=== PATIENT | female | born 1995 | race Caucasian/White ===

== ENCOUNTER → 2016-10-03 | Outpatient (CLI) | payer BC ==
[~2016-10-03] VITALS: Ht 162.6 cm; Wt 97.1 kg
[~2016-10-03] MED LIST: BUTORPHANO10 MG/1 ML; CYMBALTA20 MG PO; DICYCLOMINE HCL20 MG PO; LAMICTAL25 MG PO; LEVAQUIN500 MG PO; PHENERGAN 12.12.5 M1 PO; ROCEPHIN IM/I2000 MG IM; SYNTHROID150 MCG PO; TOPAMAX100 MG PO; TYLENOL 325MG325 MG PO; VERAPAMIL ER180 M1 PO; ZOFRAN4 MG PO
== END ==
LOC: OPSV 10:22
DX: Z48.00 Encounter for change or removal of nonsurgical wound dressing (principal); G81.90 Hemiplegia, unspecified affecting unspecified side; G43.109 Migraine with aura, not intractable, without status migrainosus; Z88.8 Allergy status to other drugs, medicaments and biological substances
CPT/HCPCS: 96365; 96375; J1200; J1885; J2930; J7050

== ENCOUNTER → 2016-10-04 | Outpatient (CLI) | payer BC ==
[~2016-10-04] VITALS: Ht 162.6 cm; Wt 97.1 kg
== END ==
LOC: OPSV 07:47
DX: Z48.00 Encounter for change or removal of nonsurgical wound dressing (principal); G43.109 Migraine with aura, not intractable, without status migrainosus; Z88.8 Allergy status to other drugs, medicaments and biological substances
CPT/HCPCS: 96365; 96375; J1200; J1885; J2930

== ENCOUNTER → 2016-10-05 | Outpatient (CLI) | payer BC ==
[~2016-10-05] VITALS: Ht 162.6 cm; Wt 97.1 kg
== END ==
LOC: OPSV 07:34
DX: Z48.00 Encounter for change or removal of nonsurgical wound dressing (principal); G43.109 Migraine with aura, not intractable, without status migrainosus
CPT/HCPCS: 96365; 96375; J1200; J1885; J2930; J7050

== ENCOUNTER → 2016-10-06 | Outpatient (CLI) | payer BC ==
[~2016-10-06] VITALS: Ht 162.6 cm; Wt 97.1 kg
== END ==
LOC: OPSV 08:00
DX: Z48.00 Encounter for change or removal of nonsurgical wound dressing (principal); G43.109 Migraine with aura, not intractable, without status migrainosus
CPT/HCPCS: 96365; 96375; J1200; J1885; J2930; J7050

== ENCOUNTER → 2016-10-07 | Outpatient (CLI) | payer BC ==
[~2016-10-07] VITALS: Ht 162.6 cm; Wt 97.1 kg
== END ==
LOC: OPSV 08:00
DX: G43.909 Migraine, unspecified, not intractable, without status migrainosus (principal)
CPT/HCPCS: 96365; 96375; J1200; J1885; J2930; J7050

== ENCOUNTER → 2017-04-15 | Outpatient (CLI) | payer BC ==
[~2017-04-15] VITALS: Ht 162.6 cm; Wt 94.3 kg
[~2017-04-15] MED LIST changes: -ROCEPHIN IM/I2000 MG IM; -TYLENOL 325MG325 MG PO
== END ==
LOC: OPSV 15:48
DX: G43.419 Hemiplegic migraine, intractable, without status migrainosus (principal)
CPT/HCPCS: 96365; 96367; 96375; J1100; J1200; J1885; J2550; J7050

== ENCOUNTER → 2017-04-16 | Outpatient (CLI) | payer BC ==
[~2017-04-16] VITALS: Ht 162.6 cm; Wt 94.3 kg
== END ==
LOC: OPSV 12:52
DX: G43.419 Hemiplegic migraine, intractable, without status migrainosus (principal)
CPT/HCPCS: 96365; 96367; 96375; J1100; J1200; J1885; J2550; J7050

== ENCOUNTER 2020-09-17 16:36 | Inpatient (IN) | payer BC, OTHER ==
[~2020-09-17] VITALS: Ht 162.6 cm; Wt 78.9 kg
[~2020-09-17 16:36] MED LIST changes: +ATIVAN1 MG PO; +BENADRYL 25MG C25 MG PO; +BENADRYL IM; +BOTOX INJ 1100 UNITS SC; +DIAMOX 250 MG250 MG PO; +DIHYDROERGOTAMINE IM; +FEOSOL325 MG PO; +FERROUS SULFAT325 M2 PO; +KEFLEX500 MG PO; +MIRALAX17 GM PO; +NORCO 5-325 TA1 EACH PO; +PERCOCET 10-321 EACH PO; -PHENERGAN 12.12.5 M1 PO; +PHENERGAN 25 MG25 M1 PO; +PHENERGAN25 MG PR; +PRENATAL VITAM1 EAC5 PO; +PRENATAL VITAM1 EAC8 PO; +ROCEPHIN IM/I2000 MG IM; +SENOKOT-S TABL1 EACH PO; +SYNTHROID175 MCG PO; +TYLENOL 325MG325 MG PO; +VERAPAMIL ER180 MG PO; +[UNRECOGNIZED DRUG - OTHER] IM
[2020-09-17 17:22] LABS: RED BLOOD COUNT 3.85 M/UL (4.00-5.10); WHITE BLOOD COUNT 12.5 K/UL (4.5-11.0)
[2020-09-18] MEDS ORDERED: ZOLOFT50 MG PO (07:03)
[2020-09-18] MEDS ORDERED: SYNTHROID175 MCG PO (07:04)
[2020-09-18] MEDS ORDERED: PRENATAL VITAM1 EAC3 PO (07:04)
[2020-09-18] MEDS ORDERED: TUMS DUAL ACTI1 EACH PO (07:05)
[2020-09-18] MEDS ORDERED: DOCUSATE SODIU100 MG PO (10:45)
[2020-09-18] MEDS ORDERED: HYDROCODON-ACE1 EAC4 PO (10:45)
[2020-09-18] MEDS ORDERED: IBUPROFEN600 MG PO (10:45)
[2020-09-19 04:37] LABS: HEMOGLOBIN 10.2 gm/dl (12.3-15.3)
== END 2020-09-19 14:21 | disposition home or self-care (01) | DRG 807 ==
LOC: GENOP 16:36 → OB 09-18 00:04
PROVIDERS: Obstetrics & Gynecology; ADMIT Obstetrics & Gynecology
PROC: 0U7C7ZZ Dilation of Cervix, Via Natural or Artificial Opening (ICD-10-PCS; principal; 2020-09-18)
PROC: 10E0XZZ Delivery of Products of Conception, External Approach (ICD-10-PCS; 2020-09-18)
PROC: 10907ZC Drainage of Amniotic Fluid, Therapeutic from Products of Conception, Via Natural or Artificial Opening (ICD-10-PCS; 2020-09-18)
PROC: 4A1J7BZ Monitoring of Products of Conception, Nervous Pressure, Via Natural or Artificial Opening (ICD-10-PCS; 2020-09-18)
PROC: 10H073Z Insertion of Monitoring Electrode into Products of Conception, Via Natural or Artificial Opening (ICD-10-PCS; 2020-09-18)
DX: O99.284 Endocrine, nutritional and metabolic diseases complicating childbirth (principal); Z37.0 Single live birth; G43.909 Migraine, unspecified, not intractable, without status migrainosus; E03.9 Hypothyroidism, unspecified; Z3A.39 39 weeks gestation of pregnancy; Z20.822 Contact with and (suspected) exposure to COVID-19
CPT/HCPCS: 36415; 51702; 81001; 82800; 85014; 85018; 85025; 85461; 86900; 86901; 90715; J0595; J1642; J2590; J7030; J7120

== ENCOUNTER → 2021-03-18 | Outpatient (CLI) | payer BC, OTHER ==
[~2021-03-18] VITALS: Ht 162.6 cm; Wt 90.7 kg
[~2021-03-18] MED LIST changes: +DOCUSATE SODIU100 MG PO; +HYDROCODON-ACE1 EAC4 PO; +IBUPROFEN600 MG PO; +PRENATAL VITAM1 EAC3 PO; +TUMS DUAL ACTI1 EACH PO; +ZOLOFT50 MG PO
== END ==
LOC: OPSV 12:53
DX: Z45.2 Encounter for adjustment and management of vascular access device (principal); I87.8 Other specified disorders of veins; G43.419 Hemiplegic migraine, intractable, without status migrainosus
CPT/HCPCS: 96365; 96375; J1100; J1200; J2550

== ENCOUNTER → 2021-03-19 | Outpatient (CLI) | payer BC, OTHER ==
[~2021-03-19] VITALS: Ht 162.6 cm; Wt 90.7 kg
== END ==
LOC: OPSV 14:00
DX: I87.8 Other specified disorders of veins (principal); G43.419 Hemiplegic migraine, intractable, without status migrainosus
CPT/HCPCS: 96365; 96375; J1100; J1200; J2550

== ENCOUNTER → 2021-03-20 | Outpatient (CLI) | payer BC, OTHER ==
[~2021-03-20] VITALS: Ht 162.6 cm; Wt 90.7 kg
== END ==
LOC: OPSV 11:40
DX: I87.8 Other specified disorders of veins (principal); G43.419 Hemiplegic migraine, intractable, without status migrainosus
CPT/HCPCS: 96365; 96375; J1100; J1200; J1642; J2550